=== PATIENT | male | born 1990 | race Caucasian/White ===

== ENCOUNTER 2019-12-17 12:17 | Emergency (ER) | payer OTHER, SELFPAY ==
[2019-12-17 12:44] LABS: #Basophils 0.1 thou/uL (0.0-0.2); #Eosinphils 0.1 thou/uL (0.0-0.7); #Lymphocytes 2.1 thou/uL (1.20-3.40); #Monocytes 0.7 thou/uL (0.11-0.59); #Neutrophils 5.3 thou/uL (1.40-6.50); %Basophils 1.5 % (0.0-1.0); %Eosinophils 1.7 % (0.0-10.0); %Lymphocytes 25.1 % (21.0-51.0); %Neutrophils 63.7 % (42.0-75.0); Hemoglobin 16.2 g/dL (14.0-18.0); Mean Corpuscular HGB CONC 32.1 g/dL (32.0-36.0); Mean Corpuscular Hemoglobin 28.6 pg (27.0-31.0); Mean Corpuscular Volume 88.9 fL (78.0-98.0); Mean Platelet Volume 8.7 fL (7.4-10.4); Platelet Count 277 thou/uL (130-400); Red Blood Cell (RBC) Count 5.68 mill/uL (4.70-6.10); White Blood Cell (WBC) Count 8.3 thou/uL (4.8-10.8)
--- NOTE | 2019-12-17 12:45 | RAD ---
XR Chest 1 View Portable History: Chest pain Comparison: Radiograph 2017 Findings: Lungs are clear. No pneumothorax. No effusion. Cardiac silhouette and mediastinal contours are within normal limits. No acute osseous abnormality. Impression: No acute intrathoracic abnormality.
[2019-12-17] MEDS ORDERED: Aspirin 325 MG TAB ONE (12:53)
[2019-12-17 12:56] LABS: Lipase 23 U/L (8-78)
[2019-12-17 13:00] LABS: CK (CPK) 134 U/L (30-200)
[2019-12-17 13:09] LABS: Anion Gap 16 mmol/L (10-20); BUN (Urea Nitrogen) 15 mg/dL (8.9-20.6); Bilirubin, Total 0.3 mg/dL (0.2-1.2); Calc. Creatinine Clearance 0 mL/min (70-130); Calcium 9.4 mg/dL (7.8-10.44); Carbon Dioxide 26 mmol/L (22-29); Chloride 106 mmol/L (98-107); Estimated GFR-MDRD 76; Glucose 90 mg/dL (70-105); Potassium 4.2 mmol/L (3.5-5.1); Protein, Total 7.4 g/dL (6.0-8.3); Sodium 144 mmol/L (136-145)
[2019-12-17 13:10] LABS: ALT (SGPT) 20 U/L (8-55); AST (SGOT) 16 U/L (5-34); Albumin 4.4 g/dL (3.5-5.0); Alkaline Phosphatase 79 U/L (40-110)
[2019-12-17] MEDS ORDERED: Sodium Chloride 0.9% 1,000 ML ONE (13:14)
== END 2019-12-17 14:00 | disposition home or self-care (01) ==
LOC: MADERS 12:17
DX: T75.4XXA Electrocution, initial encounter (principal); R07.9 Chest pain, unspecified; W86.8XXA Exposure to other electric current, initial encounter; Y99.0 Civilian activity done for income or pay
CPT/HCPCS: 71045; 80053; 82550; 83690; 84484; 85025; 85379; 93005; 94760; J7050

== ENCOUNTER 2020-02-23 01:08 | Emergency (ER) | payer SELFPAY ==
[2020-02-23] MEDS ORDERED: Ondansetron PF 4 MG/2 ML Vial ONE (01:43)
[2020-02-23] MEDS ORDERED: Ketorolac Tromethamine 30 MG/ML VIAL ONE (01:43)
[2020-02-23] MEDS ORDERED: Pantoprazole 40 MG VIAL ONE (01:43)
[2020-02-23 01:45] LABS: #Basophils 0.1 thou/uL (0.0-0.2); #Eosinphils 0.2 thou/uL (0.0-0.7); #Lymphocytes 2.1 thou/uL (1.20-3.40); #Monocytes 0.8 thou/uL (0.11-0.59); #Neutrophils 6.4 thou/uL (1.40-6.50); %Basophils 1.1 % (0.0-1.0); %Eosinophils 2.5 % (0.0-10.0); %Lymphocytes 21.5 % (21.0-51.0); %Monocytes 8.3 % (0.0-10.0); %Neutrophils 66.6 % (42.0-75.0); Hemoglobin 15.4 g/dL (14.0-18.0); Mean Corpuscular Hemoglobin 28.8 pg (27.0-31.0); Mean Corpuscular Volume 89.9 fL (78.0-98.0); Mean Platelet Volume 8.5 fL (7.4-10.4); Platelet Count 232 thou/uL (130-400); RBC Distribution Width 12.1 % (11.5-14.5); Red Blood Cell (RBC) Count 5.33 mill/uL (4.70-6.10); White Blood Cell (WBC) Count 9.7 thou/uL (4.8-10.8)
[2020-02-23 02:08] LABS: ALT (SGPT) 13 U/L (8-55); AST (SGOT) 13 U/L (5-34); Albumin 4.1 g/dL (3.5-5.0); Alkaline Phosphatase 73 U/L (40-110); Anion Gap 15 mmol/L (10-20); BUN (Urea Nitrogen) 19 mg/dL (8.9-20.6); Bilirubin, Total 0.3 mg/dL (0.2-1.2); Calc. Creatinine Clearance 0 mL/min (70-130); Carbon Dioxide 28 mmol/L (22-29); Chloride 102 mmol/L (98-107); Estimated GFR-MDRD 65; Globulin 2.2 g/dL (2.4-3.5); Glucose 99 mg/dL (70-105); Lipase 19 U/L (8-78); Potassium 4.2 mmol/L (3.5-5.1); Protein, Total 6.3 g/dL (6.0-8.3); Sodium 141 mmol/L (136-145)
[2020-02-23 02:09] LABS: CRP (Inflammatory) 1.16 mg/dL (= or < 0.5)
[2020-02-23] MEDS ORDERED: Morphine 4 MG/ML VIAL ONE (03:12)
[2020-02-23 03:14] LABS: Bilirubin Negative (Negative); Blood, Urine Negative (Negative); Clarity Clear (Clear); Glucose, Urine (Dipstick) Negative (Negative); Ketone, Urine Negative (Negative); Leukocyte Negative (Negative); Nitrite Negative (Negative); Protein, Urine (Dipstick) Negative (Neg-Trace); Urobilinogen 0.2 mg/dL (Less than 2)
[2020-02-23] MEDS ORDERED: Sodium Chloride 0.9% 1,000 ML ONE (03:19)
--- NOTE | 2020-02-23 08:30 | CT ---
PRELIMINARY REPORT/[facility]/EMERGENCY AFTER HOURS PROCEDURE: EXAM: CT Abdomen and Pelvis with Intravenous Contrast CLINICAL HISTORY: RUQ PAIN X 2 DAYS TECHNIQUE: Axial computed tomography images of the abdomen and pelvis with intravenous contrast. CONTRAST: With; 90 ml ISOVUE 370 COMPARISON: None provided. FINDINGS: There is suboptimal contrast opacification on this exam. A small amount of stringy and haz y opacity is present in the bases, most likely atelectasis. No consolidation or pleural fluid is see n. The liver and spleen are each normal in size and without focal abnormality. The gallbladder is p rominent measuring 13 cm in length and 5 cm in diameter. There is no thickening of its wall. High-d ensity material in its dependent portion likely represents calcified calculi or sludge. There is no definite fluid in the gallbladder fossa. The possibility of a calculus lodged in the neck of the gal lbladder with obstruction cannot be excluded. There is no dilatation of the biliary tree. The pancreas and adrenal glands are normal. No abnormal ity of the great vessels is seen. There is a moderate amount of fluid in the stomach. Duodenum and small bowel are unremarkable. No m esenteric lesions are evident. The appendix is not clearly identified. There is no CT evidence of a ppendicitis. A moderate amount of fecal material scattered throughout the colon. There is suggestio n for thickening of the colonic wall in some areas, such as the sigmoid colon. I think this is spuri ous related to inadequate distention. No free intraperitoneal fluid or pneumoperitoneum is seen. Th ere is no adenopathy on this exam. Each kidney is normal in size and shape. No hydronephrosis or focal abnormality or urinary calculus is seen on either side. In the pelvis, the urinary bladder is not well distended but grossly negative. Prostate and seminal vesicles show no acute abnormality. On bone windows, no acute osseous abnormality is seen. IMPRESSION: 1. There is suboptimal contrast enhancement on this exam. 2. the gallbladder is hydropic and contains calculi and/or sludge. There is possibly a calculus lod ged in its neck. Biliary tree is normal. 3. Additional small observations detailed above. ELECTRONICALLY SIGNED BY: Roderick Jose MD Feb 23, 2020 2:53:13 AM CDT This report is intended for review by the ordering physician only, in accordance of law. If you recei ve this report in error, please call [facility] at [phone]. FINAL REPORT EMERGENCY AFTER HOURS CT ABDOMEN AND PELVIS WITH CONTRAST: FINDINGS/IMPRESSION: I agree with the findings and impression given in the preliminary report per [facility] physici an. There is enlargement of the gallbladder with likely gallstones in the gallbladder. Correlate for symp toms of acute cholecystitis. POS: VIV
[2020-02-23] MEDS ORDERED: Iopamidol 370 76% 100 ML VIAL ONE (12:00)
== END 2020-02-23 03:47 | disposition home or self-care (01) ==
LOC: MADERS 01:08
DX: K80.20 Calculus of gallbladder without cholecystitis without obstruction (principal); Z79.899 Other long term (current) drug therapy
CPT/HCPCS: 74177; 80053; 81003; 82150; 82550; 83690; 84484; 85025; 86140; 96374; 96375; C9113; J1885; J2270; J2405; J7050; Q9967

== ENCOUNTER 2020-02-27 18:38 | Emergency (ER) | payer SELFPAY ==
[2020-02-27] MEDS ORDERED: Ondansetron PF 4 MG/2 ML Vial ONE ×2 (19:51)
[2020-02-27] MEDS ORDERED: HYDROmorphone 0.5 MG/0.5 ML SYRINGE ONE ×2 (19:51→21:09)
[2020-02-27 20:11] LABS: #Basophils 0.1 thou/uL (0.0-0.2); #Eosinphils 0.2 thou/uL (0.0-0.7); #Lymphocytes 1.3 thou/uL (1.20-3.40); #Monocytes 0.8 thou/uL (0.11-0.59); #Neutrophils 4.8 thou/uL (1.40-6.50); %Basophils 2.1 % (0.0-1.0); %Eosinophils 3.3 % (0.0-10.0); %Lymphocytes 17.3 % (21.0-51.0); %Monocytes 11.6 % (0.0-10.0); %Neutrophils 65.9 % (42.0-75.0); Mean Corpuscular HGB CONC 32.4 g/dL (32.0-36.0); Mean Corpuscular Hemoglobin 29.4 pg (27.0-31.0); Mean Corpuscular Volume 90.7 fL (78.0-98.0); Mean Platelet Volume 7.8 fL (7.4-10.4); Platelet Count 242 thou/uL (130-400); Red Blood Cell (RBC) Count 5.43 mill/uL (4.70-6.10); White Blood Cell (WBC) Count 7.2 thou/uL (4.8-10.8)
--- NOTE | 2020-02-27 20:12 | RAD ---
EXAM: CHEST TWO VIEWS 02/27/2020 8:05 PM HISTORY: Cough, shortness of breath, postop day 5 from cholecystectomy COMPARISON: None. FINDINGS: Lungs: No acute airspace consolidation. Heart: Normal in size and contour. Pulmonary Vessels: Normal. Costophrenic Angles: Clear. Pneumothorax: None. Osseous Structures: Intact. Additional Findings: Small amount of pneumoperitoneum is seen overlying the left hemidiaphragm. Darlin gical clips are seen within the right upper quadrant of the abdomen. IMPRESSION: No significant acute intrathoracic disease. Mild left-sided pneumoperitoneum may be postoperative in nature. Recommend correlation with patient's clinical exam. Findings called to Dr. Crowder at 8:07 PM on January 31, 2020.
[2020-02-27 20:23] LABS: Bilirubin Negative (Negative); Blood, Urine Negative (Negative); Clarity Clear (Clear); Glucose, Urine (Dipstick) Negative (Negative); Ketone, Urine Trace mg/dL (Negative); Leukocyte Negative (Negative); Nitrite Negative (Negative); Protein, Urine (Dipstick) Negative (Neg-Trace); Specific Gravity, Urine 1.025 (1.005-1.030); Urobilinogen 0.2 mg/dL (Less than 2)
[2020-02-27 20:42] LABS: ALT (SGPT) 30 U/L (8-55); AST (SGOT) 17 U/L (5-34); Alkaline Phosphatase 79 U/L (40-110); Anion Gap 17 mmol/L (10-20); BUN (Urea Nitrogen) 12 mg/dL (8.9-20.6); Bilirubin, Total 0.3 mg/dL (0.2-1.2); Calc. Creatinine Clearance 0 mL/min (70-130); Calcium 9.2 mg/dL (7.8-10.44); Carbon Dioxide 27 mmol/L (22-29); Chloride 99 mmol/L (98-107); Estimated GFR-MDRD 74; Globulin 2.8 g/dL (2.4-3.5); Lipase 14 U/L (8-78); Potassium 4.2 mmol/L (3.5-5.1); Protein, Total 6.8 g/dL (6.0-8.3); Sodium 139 mmol/L (136-145)
[2020-02-27 20:52] LABS: Glucose 56 mg/dL (70-105)
[2020-03-01 12:43] LABS: SARS-CoV-2 MS2 Positive; SARS-CoV-2 N Gene Positive; SARS-CoV-2 S Gene Positive; SARS-CoV-2 by NAA DETECTED (NotDetected); SARS-CoV-2 orf1ab Positive
== END 2020-02-27 21:26 | disposition home or self-care (01) ==
LOC: EEVIPCON 18:38 → MADERS 18:38
DX: R10.12 Left upper quadrant pain (principal)
CPT/HCPCS: 71046; 80053; 81003; 83605; 83690; 85025; 87635; 96374; 96375; 96376; J1170; J2405; U0003

== ENCOUNTER 2021-01-22 19:13 | Emergency (ER) | payer SELFPAY ==
[2021-01-22 20:10] LABS: #Basophils 0.1 thou/uL (0.0-0.2); #Eosinphils 0.2 thou/uL (0.0-0.7); #Lymphocytes 1.8 thou/uL (1.20-3.40); #Monocytes 0.8 thou/uL (0.11-0.59); #Neutrophils 6.1 thou/uL (1.40-6.50); %Basophils 1.1 % (0.0-1.0); %Eosinophils 1.9 % (0.0-10.0); %Lymphocytes 19.8 % (21.0-51.0); %Neutrophils 68.2 % (42.0-75.0); Hemoglobin 16.2 g/dL (14.0-18.0); Mean Corpuscular HGB CONC 33.9 g/dL (32.0-36.0); Mean Corpuscular Hemoglobin 30.7 pg (27.0-31.0); Mean Corpuscular Volume 90.5 fL (78.0-98.0); Platelet Count 268 thou/uL (130-400); RBC Distribution Width 11.6 % (11.5-14.5)
[2021-01-22 20:40] LABS: ALT (SGPT) 26 U/L (8-55); AST (SGOT) 16 U/L (5-34); Acetaminophen Less than 6.0 mcg/mL (10.0-30.0); Albumin 4.3 g/dL (3.5-5.0); Alcohol Less than 10 mg/dL (Less than 10); Alkaline Phosphatase 89 U/L (40-110); Anion Gap 12 mmol/L (10-20); BUN (Urea Nitrogen) 20 mg/dL (8.9-20.6); Bilirubin, Total 0.3 mg/dL (0.2-1.2); CK (CPK) 70 U/L (30-200); Calc. Creatinine Clearance 0 mL/min (70-130); Calcium 9.9 mg/dL (7.8-10.44); Carbon Dioxide 26 mmol/L (22-29); Chloride 107 mmol/L (98-107); Globulin 2.9 g/dL (2.4-3.5); Glucose 93 mg/dL (70-105); Potassium 4.1 mmol/L (3.5-5.1); Protein, Total 7.2 g/dL (6.0-8.3); Salicylate Less than 8.0 mg/dL (15.0-30.0); Sodium 141 mmol/L (136-145)
[2021-01-22] MEDS ORDERED: Nitroglycerin 2% Ointment 1 INCH/1 GM Packet ONE (22:53)
[2021-01-22] MEDS ORDERED: Naloxone HCl 0.4 mg/ml Vial ONE (22:53)
[2021-01-22] MEDS ORDERED: Nicotine 7 MG PATCH ONE (22:53)
[2021-01-22 22:57] LABS: Bilirubin Negative (Negative); Blood, Urine Negative (Negative); Clarity Clear (Clear); Glucose, Urine (Dipstick) Negative (Negative); Ketone, Urine Negative (Negative); Leukocyte Negative (Negative); Nitrite Negative (Negative); Protein, Urine (Dipstick) Negative (Neg-Trace); Urobilinogen 0.2 mg/dL (Less than 2)
[2021-01-22 22:58] LABS: Specific Gravity, Urine 1.032 (1.002-1.036)
[2021-01-22 23:07] LABS: Amphetamine Not Detected (NotDetected); Barbiturates Screen Not Detected (NotDetected); Benzodiazepine Screen Detected (NotDetected); Cocaine Metabolite Screen Not Detected (NotDetected); Medtox Control Line Valid? VALID (VALID); Methadone Not Detected (NotDetected); Methamphetamine Not Detected (NotDetected); Opiate Screen Not Detected (NotDetected); Oxycodone Screen Not Detected (NotDetected); Phencyclidine (PCP) Not Detected (NotDetected); THC/Cannabinoid Screen Not Detected (NotDetected); Tricyclic Screen Detected (NotDetected)
[2021-01-23] MEDS ORDERED: Sodium Chloride 0.9% 1,000 ML ONE (00:52)
== END 2021-01-23 01:52 | disposition home or self-care (01) ==
LOC: MADERS 19:13
DX: F32.9 Major depressive disorder, single episode, unspecified (principal); R00.0 Tachycardia, unspecified; Z79.899 Other long term (current) drug therapy
CPT/HCPCS: 80053; 80306; 80307; 81003; 82550; 85025; 99285; J2310; J7050

== ENCOUNTER 2022-09-02 11:57 | Emergency (ER) | payer BC, SELFPAY ==
[2022-09-02] MEDS ORDERED: Famotidine/PF 20 mg/2ml Vial ONE (12:17)
== END 2022-09-02 14:11 | disposition home or self-care (01) ==
LOC: MADERS 11:57
DX: T78.2XXA Anaphylactic shock, unspecified, initial encounter (principal); I10 Essential (primary) hypertension
CPT/HCPCS: 94760; 96361; 96374; S0028

== ENCOUNTER 2022-11-22 21:29 | Emergency (ER) | payer BC ==
[2022-11-22] MEDS ORDERED: Tetracaine 0.5% PF 4 ML BOT ONE (22:08)
[2022-11-22] MEDS ORDERED: Fluorescein Opthalmic Strip ONE (22:08)
[2022-11-22] MEDS ORDERED: Erythromycin Base 0.5% Ophth Oint 3.5 gm Tube ONE (22:18)
== END 2022-11-22 22:32 | disposition home or self-care (01) ==
LOC: MADERS 21:29
DX: H10.9 Unspecified conjunctivitis (principal); I10 Essential (primary) hypertension; Z79.899 Other long term (current) drug therapy
CPT/HCPCS: 99282

== ENCOUNTER 2023-07-04 18:47 | Emergency (ER) | payer BC ==
[2023-07-04 19:26] LABS: #Basophils 0.1 thou/uL (0.0-0.2); #Eosinphils 0.1 thou/uL (0.0-0.7); #Neutrophils 6.8 thou/uL (1.40-6.50); %Basophils 1.4 % (0.0-1.0); %Eosinophils 1.3 % (0.0-10.0); %Monocytes 8.7 % (0.0-10.0); %Neutrophils 61.6 % (42.0-75.0); Hematocrit 54.5 % (42.0-52.0); Hemoglobin 17.7 g/dL (14.0-18.0); Mean Corpuscular HGB CONC 32.5 g/dL (32.0-36.0); Mean Corpuscular Hemoglobin 28.6 pg (27.0-31.0); Mean Corpuscular Volume 87.9 fl (78.0-98.0); Mean Platelet Volume 9.6 fL (7.4-10.4); Platelet Count 241 10x3/uL (130-400); RBC Distribution Width 12.3 % (11.5-14.5)
[2023-07-04 19:36] LABS: Prothrombin Time 13.2 sec (12.0-14.7)
[2023-07-04 19:38] LABS: D-Dimer Test 0.27 mcg/mL (0.27-0.43)
[2023-07-04 19:46] LABS: ALT (SGPT) 21 U/L (8-55); AST (SGOT) 17 U/L (5-34); Albumin 4.1 g/dL (3.5-5.0); Alkaline Phosphatase 61 U/L (40-110); Anion Gap 14 mmol/L (10-20); BUN (Urea Nitrogen) 14 mg/dL (8.9-20.6); Bilirubin, Total 0.5 mg/dL (0.2-1.2); Calc. Creatinine Clearance 0 mL/min (70-130); Calcium 9.2 mg/dL (7.8-10.44); Carbon Dioxide 24 mmol/L (22-29); Chloride 105 mmol/L (98-107); Estimated GFR 88; Globulin 1.9 g/dL (2.4-3.5); Glucose 76 mg/dL (70-105); Magnesium 1.8 mg/dL (1.6-2.6); Potassium 3.8 mmol/L (3.5-5.1); Sodium 139 mmol/L (136-145); Troponin I Less than 0.010 ng/mL (< 0.028)
[2023-07-04 21:56] LABS: Troponin I Less than 0.010 ng/mL (< 0.028)
== END 2023-07-04 22:31 | disposition home or self-care (01) ==
LOC: MADERS 18:47
DX: R07.9 Chest pain, unspecified (principal); I10 Essential (primary) hypertension
CPT/HCPCS: 36415; 71046; 80053; 83735; 84443; 84484; 85025; 85379; 85610; 93005